=== PATIENT | male | born 1960 | race African-American/Black ===

== ENCOUNTER 2018-05-02 20:22 | Emergency (ER) | payer MEDICAID ==
[~2018-05-02] VITALS: Ht 177.8 cm; Wt 68.0 kg
[2018-05-03 14:05] VITALS: BP 140/68
== END 2018-05-03 14:41 | disposition home or self-care (01) ==
LOC: ER 20:22
DX: S00.01XA Abrasion of scalp, initial encounter (principal); J45.909 Unspecified asthma, uncomplicated; I10 Essential (primary) hypertension; F31.9 Bipolar disorder, unspecified; Z59.0 Homelessness; W18.39XA Other fall on same level, initial encounter; Y93.89 Activity, other specified; Y92.89 Other specified places as the place of occurrence of the external cause; Y99.8 Other external cause status
CPT/HCPCS: 99284